=== PATIENT | female | born 1970 | race Two or more races ===

== ENCOUNTER 2025-01-07 14:30 | Emergency (ER) | payer OTHER ==
[~2025-01-07] VITALS: Ht 170.2 cm; Wt 77.1 kg
[2025-01-07] MEDS ORDERED: JARDIANCE10 MG PO (15:13)
[2025-01-07] MEDS ORDERED: CRESTOR40 MG PO (15:14)
[2025-01-07] MEDS ORDERED: ZESTRIL5 MG PO (15:14)
[2025-01-07] MEDS ORDERED: 0.9 % SODIUM CHLORIDE 1,000 ML IV STA (16:58)
[2025-01-07] MEDS ORDERED: HYOSCYAMINE SULFATE 0.125 MG TAB.SUBL ONE (16:59)
[2025-01-07] MEDS ORDERED: DIPHENOXYLATE HCL/ATROPINE 1 UDTAB TABLET PO STA (17:00)
[2025-01-07] MEDS ORDERED: HYOSCYAMINE SULFATE 0.125 MG TAB.SUBL SL ONE (17:00)
[2025-01-07 17:15] LABS: BASO % 0.2 % (0.1-1.2); EOS # 0.10 (0.04-0.54); EOS % 1.1 % (0.7-7.0); LYMPH # 0.55 (1.18-3.74); LYMPH % 5.8 % (19.3-53.1); MEAN PLATELET VOLUME 10.60 fl (9.4-12.4); MONO # 0.54 (0.24-0.82); MONO % 5.7 % (4.7-12.5); NEUT # 8.22 (1.56-6.13); NEUT % 87.0 % (34.0-71.1); RED CELL DISTRIBUTION WIDTH 12.3 % (11.6-14.4)
[2025-01-07 17:39] LABS: ALT/SGPT 28.0 U/L (12-78); AST/SGOT 25.0 U/L (15-37); BILIRUBIN TOTAL 0.64 mg/dL (0.3-1.2); BUN CREA RATIO 20.0 (7.0-25.0); CREATININE SERUM 0.96 mg/dL (0.55-1.02); GFR 60.57; GLOBULINA 3.5 G/DL (2.4-3.5); GLUCOSE FASTING 120.0 mg/dL (65-100); OSMOLALITY SERUM 288.0 MOSM/KG (275-295)
[2025-01-07] MEDS ORDERED: CEFAZOLIN SODIUM 1,000 MG VIAL IV STA (18:28)
[2025-01-07] MEDS ORDERED: CEFAZOLIN SODIUM 1,000 MG VIAL ONE (18:33)
[2025-01-07] MEDS ORDERED: FAMOTIDINE/PF 20 MG/2 ML VIAL ONE (18:39)
[2025-01-07] MEDS ORDERED: FAMOTIDINE/PF 20 MG/2 ML VIAL IV PUSH STA (18:41)
== END 2025-01-07 20:41 | disposition home or self-care (01) ==
LOC: ER 14:43
DX: R19.7 Diarrhea, unspecified (principal)